=== PATIENT | female | born 1985 | race Two or more races ===

== ENCOUNTER 2023-01-27 09:38 | Emergency (ER) | payer MEDICAID ==
[~2023-01-27] VITALS: Ht 162.6 cm; Wt 68.9 kg
[2023-01-27 10:14] VITALS: BP 130/70; PULSE 83; RESP 20; TEMP 98.4; O2SAT 97
[2023-01-27] MEDS ORDERED: HYDROcodone-ACET 5/325MG TAB PO ONE (10:45)
[2023-01-27] MEDS ORDERED: KETOROLAC TROMETH 60MG/2ML VIAL IM ONE (10:45)
[2023-01-27] MEDS ORDERED: cefTRIAXone SOD 1,000 MG VL IM ONE (10:45)
[2023-01-27] MEDS ORDERED: CIPR1SUS8 OT (11:39)
[2023-01-27] MEDS ORDERED: LEVO750T40 PO (11:39)
== END 2023-01-27 12:05 | disposition home or self-care (01) ==
LOC: ER 09:38
DX: H60.503 Unspecified acute noninfective otitis externa, bilateral (principal)
CPT/HCPCS: 96372; 99284; J0696; J1885